=== PATIENT | female | born 1940 | race Caucasian/White ===

== ENCOUNTER 2017-01-29 23:55 | Emergency (ER) | payer MEDICARE ==
[2017-01-30] MEDS ORDERED: LIDO/EPI/TETRACAINE GEL 1 APPLIC/5 ML SYRINGE ONE (00:41)
--- NOTE | 2017-01-30 07:50 | RAD ---
01/30/2017 7:46 AM ABDOMEN OR KUB HISTORY: Feeding tube replacement. COMPARISON: 01/21/2017 TECHNIQUE: Single supine view FINDINGS: There are nondilated loops of small and large bowel containing gas and stool. There are no dilated loops to suggest ileus or obstruction. There is no evidence of free intra-abdominal gas. There has been interval replacement of the patient's PEG tube. Tube appears to project in the expected region of the stomach. Mild amount stool is noted within the skull in. Osseous structures are intact. Posterior joint changes at L4-5 is noted with pedicle screw and joann fixation, with laminectomy defect. IMPRESSION: PEG tube as above. Nonspecific, nonobstructive bowel gas pattern with air and stool. Follow-up as clinically warranted.
== END 2017-01-30 01:50 | disposition home or self-care (01) ==
LOC: ED 23:55
DX: Z43.1 Encounter for attention to gastrostomy (principal); Z46.59 Encounter for fitting and adjustment of other gastrointestinal appliance and device; I10 Essential (primary) hypertension; J45.909 Unspecified asthma, uncomplicated; G20 Parkinson's disease
CPT/HCPCS: 74000; 99283 ×2; 43760 ×2; A9270